=== PATIENT | male | born 1990 | race Two or more races ===

== ENCOUNTER 2020-08-18 14:06 | Inpatient (IN) | payer OTHER ==
[~2020-08-18] VITALS: Ht 175.3 cm; Wt 82.9 kg
--- NOTE | 2020-08-18 14:23 | NUR ---
This pt approached EMS for palpitations he'd been experiencing for apporx and hour. He has felt this way in the past, but was never seen for it. Pt states he was sick this past week and was taking a lot of cold medicine. He also took a pill "that's supposed to be good for colds from [place]." Pt unable to ellaborate on how he feels "wierd." C/o palpitations, slight dizziness and SOB. Pt's HR is irrgularlly irregular and his apical pulse is 130s-170s. His radial pulse is 60-80s. V-tach runs of 3 noted irregularlly. Connected to all monitors. EKG done. Bharath REYNOLDS to bedside.
[2020-08-18] MEDS ORDERED: DILTIAZEM 5 MG/ML, 5ML ONE ×3 (14:29→15:28)
[2020-08-18] MEDS ORDERED: SODIUM CHLORIDE 0.9% 1,000ML IVBOLUS ONE (14:30)
[2020-08-18] MEDS ORDERED: SODIUM CHLORIDE FLUSH 10ML SYR IVF ONE (14:30)
[2020-08-18] MEDS ORDERED: DILTIAZEM 5 MG/ML, 5ML IV ONE (14:30)
--- NOTE | 2020-08-18 14:38 | NUR ---
Pt states he feels slightly better after med.
[2020-08-18 14:55] LABS: BASOPHILS % (AUTO) 1 % (0-1); EOSINOPHILS % (AUTO) 1 % (1-7); LYMPHOCYTES % (AUTO) 25 % (22-44); MEAN CORPUSCULAR HEMOGLOBIN 29.4 pg (27.5-34.5); MEAN CORPUSCULAR HGB CONC 33.2 g/dL (33.2-36.2); MEAN PLATELET VOLUME 9.4 fL (7.4-10.4); MONOCYTES % (AUTO) 7 % (2-9); NEUTROPHILS % (AUTO) 66 % (42-75); PLATELET COUNT 237 x10^3/uL (130-400); RED BLOOD COUNT 5.24 x10^6/uL (4.38-5.82); RED CELL DISTRIBUTION WIDTH 12.8 % (9.4-14.8)
[2020-08-18 14:56] LABS: MD NO
[2020-08-18 15:09] LABS: ALBUMIN 3.6 g/dL (3.4-5.0); ANION GAP 6 mmol/L (5-15); CALCIUM 8.5 mg/dL (8.5-10.1); CHLORIDE 112 mmol/L (98-107)
[2020-08-18 15:23] LABS: ALANINE AMINOTRANSFERASE 30 U/L (12-78); ALKALINE PHOSPHATASE 64 U/L (45-117); BILIRUBIN,TOTAL 0.3 mg/dL (0.2-1.0); CREATININE 0.81 mg/dL (0.7-1.3); FREE T4 (FREE THYROXINE) 1.08 ng/dL (0.76-1.46)
[2020-08-18] MEDS ORDERED: DILTIAZEM 5 MG/ML, 5ML IVPush ONE (15:30)
--- NOTE | 2020-08-18 15:38 | NUR ---
Confirmed 2nd dose of Cardizem for a total of 45mg with MD Espinoza prior to admin.
--- NOTE | 2020-08-18 16:15 | NUR ---
MD Espinoza to bedside to discuss cardioversion with pt. Pt refusing at this time, stating he believes he has COVID and cardioversion will kill him. Pt's fears addressed, agreed to rapid COVID swab. Pt states he's anxious HR noted to be back up to 160s. Pt denied wanting medicaiton for anxiety. All needs met at this time.
[2020-08-18] MEDS ORDERED: DILTIAZEM 125 MG in SODIUM CHLORIDE 0.9% 100 ML IV SCH ×2 (16:30→18:00)
--- NOTE | 2020-08-18 16:32 | NUR ---
MD Espinoza back to bedside after consult with cardiology to update pt on POC including admit.
--- NOTE | 2020-08-18 16:45 | NUR ---
Med sent for from pharmacy.
[2020-08-18] MEDS ORDERED: SODIUM CHLORIDE FLUSH 10ML SYR IVF PRN (17:00)
[2020-08-18 17:07] LABS: AMPHETAMINE SCREEN, URINE Negative (Negative); BARBITURATE SCREEN, URINE Negative (Negative); BENZODIAZEPINE SCREEN, URINE Negative (Negative); CANNABINOID SCREEN, URINE Negative (Negative); COCAINE SCREEN, URINE Negative (Negative); METHADONE SCREEN, URINE Negative (Negative); OPIATE SCREEN, URINE Negative (Negative)
[2020-08-18] MEDS ORDERED: LORazepam 1MG TABLET ONE (17:34)
[2020-08-18] MEDS ORDERED: ONDANSETRON 2MG/ML, 2ML IVPush PRN (18:00)
[2020-08-18] MEDS ORDERED: ONDANSETRON ODT 4 MG PO PRN (18:00)
[2020-08-18] MEDS ORDERED: LORazepam 1MG TABLET PO ONE (18:00)
[2020-08-18 18:06] VITALS: BP 133/79
[2020-08-18] MEDS: ENOXAPARIN 80 MG/0.8 ML SQ SCH (18:28)
[2020-08-18] MEDS ORDERED: POTASSIUM CHLORIDE 40 MEQ in SODIUM CHLORIDE 0.9% 500 ML IV ONE (19:00)
[2020-08-18 19:43] VITALS: BP 118/80
[2020-08-18] MEDS ORDERED: ACETAMINOPHEN 325 MG TABLET PO PRN (21:00)
[2020-08-19 01:06] VITALS: BP 129/71
[2020-08-19] MEDS: LACTATED RINGERS 1,000 ML IV SCH ×2 (01:13→07:51)
[2020-08-19 05:40] LABS: BASOPHILS % (AUTO) 2 % (0-1); EOSINOPHILS % (AUTO) 1 % (1-7); LYMPHOCYTES % (AUTO) 39 % (22-44); MEAN CORPUSCULAR HEMOGLOBIN 29.7 pg (27.5-34.5); MEAN CORPUSCULAR HGB CONC 33.6 g/dL (33.2-36.2); MEAN PLATELET VOLUME 9.5 fL (7.4-10.4); MONOCYTES % (AUTO) 8 % (2-9); NEUTROPHILS % (AUTO) 49 % (42-75); PLATELET COUNT 246 x10^3/uL (130-400); RED CELL DISTRIBUTION WIDTH 12.8 % (9.4-14.8)
[2020-08-19 05:41] LABS: MD NO
[2020-08-19 05:52] LABS: ANION GAP 5 mmol/L (5-15); CALCIUM 8.8 mg/dL (8.5-10.1); CHLORIDE 112 mmol/L (98-107); CREATININE 0.69 mg/dL (0.7-1.3)
[2020-08-19] MEDS: ENOXAPARIN 80 MG/0.8 ML SQ SCH (05:55)
[2020-08-19] MEDS ORDERED: POTASSIUM CHLORIDE 20 MEQ TAB.ER.PRT PO ONE (07:00)
[2020-08-19 08:26] VITALS: BP 117/71
[2020-08-19] MEDS ORDERED: DILT-8 PO (09:21)
[2020-08-19] MEDS ORDERED: DILTIAZEM 120 MG CAP.ER.24H PO SCH (09:30)
[2020-08-19] MEDS ORDERED: DILTIAZEM 125 MG in SODIUM CHLORIDE 0.9% 100 ML IV SCH (19:00)
== END 2020-08-19 12:03 | disposition home or self-care (01) | DRG 310 ==
LOC: EDBD 14:06 → ED 16:25 → ORIP 16:53 → 5SO 18:03 → DCLOUNGE 08-19 11:59
PROVIDERS: ADMIT Family Medicine; ATTEND Family Medicine
DX: I48.91 Unspecified atrial fibrillation (principal); Z20.822 Contact with and (suspected) exposure to COVID-19; E87.6 Hypokalemia
CPT/HCPCS: 36415; 71045; 80048; 80053; 80307; 83735; 84439; 84443; 85025; 87635; 93005; 96360; G0378; J1650; J3480; J7030; J7040; J7120

== ENCOUNTER 2020-09-05 20:07 | Emergency (ER) | payer MEDICAID ==
[~2020-09-05] VITALS: Ht 172.7 cm; Wt 82.9 kg
[~2020-09-05 20:07] MED LIST: DILT-8 PO
--- NOTE | 2020-09-05 20:41 | NUR ---
HAND CANDY DIPPER: PT. TO ROOM FROM LOBBY AT THIS TIME.
[2020-09-05] MEDS ORDERED: KETOROLAC 30 MG/1 ML IM ONE (21:00)
[2020-09-05] MEDS ORDERED: KETOROLAC 30 MG/1 ML ONE (21:08)
--- NOTE | 2020-09-05 21:15 | NUR ---
pt sitting up watching television. nad noted at this time. pt reports cp intermittent. None currently.
[2020-09-05 21:41] LABS: BASOPHILS % (AUTO) 1 % (0-1); EOSINOPHILS % (AUTO) 2 % (1-7); LYMPHOCYTES % (AUTO) 42 % (22-44); MEAN CORPUSCULAR HEMOGLOBIN 30.1 pg (27.5-34.5); MEAN CORPUSCULAR HGB CONC 34.5 g/dL (33.2-36.2); MEAN PLATELET VOLUME 9.6 fL (7.4-10.4); MONOCYTES % (AUTO) 9 % (2-9); NEUTROPHILS % (AUTO) 45 % (42-75); PLATELET COUNT 225 x10^3/uL (130-400); RED BLOOD COUNT 5.03 x10^6/uL (4.38-5.82); RED CELL DISTRIBUTION WIDTH 12.7 % (9.4-14.8)
[2020-09-05 21:42] LABS: MD NO
[2020-09-05 21:52] LABS: ALBUMIN 3.8 g/dL (3.4-5.0); ANION GAP 4 mmol/L (5-15); CALCIUM 8.8 mg/dL (8.5-10.1); CHLORIDE 108 mmol/L (98-107)
[2020-09-05 21:57] LABS: CREATININE 0.76 mg/dL (0.7-1.3); TROPONIN I < 0.015 ng/mL (0.000-0.045)
--- NOTE | 2020-09-05 22:09 | NUR ---
PT CHART UP FOR RECHECK. PT SITTING UP IN BED USING CELL PHONE. NAD NOTED AT THIS TIME. RESPIRATIONS EVEN AND UNLABORED ON RA.
[2020-09-05 22:42] VITALS: BP 121/72
== END 2020-09-05 22:43 | disposition home or self-care (01) ==
LOC: ED 20:56
DX: R07.89 Other chest pain (principal); I48.91 Unspecified atrial fibrillation
CPT/HCPCS: 36415; 71045; 80048; 82040; 84484; 85025; 93005; 96372; 99285; J1885